=== PATIENT | female | born 1965 | race Caucasian/White ===

== ENCOUNTER 2017-07-13 01:05 | Inpatient (IN) | payer SELFPAY ==
[2017-07-13] MEDS ORDERED: PIPERACIL-TAZO 4.5 GM PREMIX 100 ML IV SCH (04:15)
[2017-07-13] MEDS ORDERED: SODIUM CHLORIDE 0.9% FLUSH 10 ML FLUSH IV FLUSH PRN (04:15)
[2017-07-13] MEDS ORDERED: NALOXONE HCL 0.4 MG/ML AMP IV PUSH PRN (04:15)
[2017-07-13] MEDS ORDERED: ACETAMINOPHEN 325 MG TAB PO PRN (04:15)
[2017-07-13] MEDS: SODIUM CHLOR 0.9% 1000 ML INJ 1,000 ML IV SCH ×2 (04:40→15:38)
[2017-07-13] MEDS: AZITHROMYCIN INJ 500 MG in SODIUM CHLOR 0.9% 250 ML INJ 250 ML IV SCH (04:41)
[2017-07-13] MEDS: cefTRIAXone INJ 1,000 MG in SODIUM CHLORIDE 0.9% INJ 100 ML IV SCH (06:34)
[2017-07-13 08:00] VITALS: BP 189/98; PULSE 95; RESP 22; TEMP 99.1; O2SAT 98
[2017-07-13] MEDS: INSULIN ASPART SUPPLEMENTAL SCALE SQ SCH ×4 (08:00→20:58)
[2017-07-13] MEDS ORDERED: GLUCAGON 1 MG/ML VIAL OTHER PRN (08:00)
[2017-07-13] MEDS ORDERED: DEXTROSE 50% IN WATER 50 ML VIAL(D50) IV PUSH PRN (08:00)
[2017-07-13] MEDS: SODIUM CHLORIDE 0.9% FLUSH 10 ML FLUSH IV FLUSH SCH ×2 (08:20→19:34)
--- NOTE | 2017-07-13 08:31 | HHI.HP ---
[facility] Non-Staff Admission Diagnosis Sepsis UTI Kidney stone Dehydration Diagnoses: (1) Sepsis (2) UTI (urinary tract infection) (3) Dehydration (4) Pneumonia Chief Complaint: Nausea, vomiting and diarrhea Travel History International Travel<30 Days: No Contact w/Intl Traveler <30 Da: No Traveled to Known Affected Are: No Sepsis Criteria SIRS Criteria (2 or more): Heart rate over 90, RR > 20 or PaCO2 < 32, WBC > 00844, < 4000 or > 10% bands Sepsis Criteria (SIRS+source): Infect source susp/known Criteria Outcome: Meets sepsis criteria History of Present Illness This is a 51-year-old female patient with a known medical history of hypertension and diabetes who presented to the ED with complaints of nausea, vomiting and one episode of diarrhea. Patient states that her symptoms have persisted for 2 days and she has been unable to keep anything down by mouth. She denies any recent fever, chills, headache, shortness of breath, cough. Does also complain of intermittent burning on urination as well as foul- smelling urine. Patient does follow with her primary care doctor, denies any recent changes to her medications. Did undergo a colonoscopy and EGD last year which was reportedly negative. Denies any black or bloody stools. Denies history of kidney stones. Review of Systems Constitutional: COMPLAINS OF: Fever, Chills Eyes: DENIES: Diplopia Respiratory: DENIES: Cough, Sputum production, Shortness of breath Cardiovascular: DENIES: Chest pain, Palpitations Gastrointestinal: COMPLAINS OF: Abdominal pain, Diarrhea, Nausea, Vomiting, DENIES: Black stools, Bloody stools, Constipation Musculoskeletal: DENIES: Joint pain Integumentary: DENIES: Abnormal pigmentation Neurologic: DENIES: Abnormal gait Psychiatric: COMPLAINS OF: Anxiety Except as stated in HPI: all other systems reviewed are Neg Past Family Social History Past Medical History Diabetes Hypertension Past Surgical History Episiotomy Reported Medications Lisinopril 5 mg p.o. daily Allergies: Coded Allergies: No Known Allergies (Unverified , 07/12/17) Active Ordered Medications Current Medications Medications (Trade) Dose Ordered Sig/Isaac Route Start Time Stop Time Status Last Admin Sodium Chloride 1,000 ml @ 100 mls/hr Q10H IV 07/13/17 04:05 07/13/17 04:40 (NS Flush) 2 ml UNSCH PRN IV FLUSH 07/13/17 04:15 (NS Flush) 2 ml BID IV FLUSH 07/13/17 09:00 (Narcan Inj) 0.4 mg UNSCH PRN IV PUSH 07/13/17 04:15 Azithromycin 500 mg/Sodium Chloride 250 ml @ 250 mls/hr Q24H IV 07/13/17 04:00 07/13/17 04:41 Ceftriaxone Sodium 1000 mg/ Sodium Chloride 100 ml @ 200 mls/hr Q24H IV 07/13/17 05:00 07/13/17 06:34 (Zofran Odt) 4 mg Q6H PRN SL 07/13/17 04:15 (Tylenol) 650 mg Q4H PRN PO 07/13/17 04:15 (D50w (Vial) Inj) 50 ml UNSCH PRN IV PUSH 07/13/17 08:00 (Glucagon Inj) 1 mg UNSCH PRN OTHER 07/13/17 08:00 (NovoLOG SUPPLEMENTAL SCALE) 1 ACHS SLIDING SCALE SQ 07/13/17 08:00 (Prinivil) 5 mg DAILY PO 07/13/17 11:45 UNV Family History Family medical history significant for diabetes and hypertension. Social History Patient denies any tobacco, alcohol or illicit drug use. Physical Exam Vital Signs Vital Signs Date Time Temp Pulse Resp B/P (MAP) Pulse Ox O2 Delivery O2 Flow Rate FiO2 07/13/17 08:00 99.1 95 22 189/98 (128) 98 Physical Exam GENERAL: Well-developed, well-nourished patient in NAD. SKIN: Warm and dry. No rash. HEAD: Normocephalic. Atraumatic. EYES: Pupils equal and round. No scleral icterus. No injection or drainage. ENT: No nasal bleeding or discharge. Mucous membranes pink and moist. NECK: Supple. Trachea midline. CARDIOVASCULAR: Regular rate and rhythm. S1, S2 noted. No murmur appreciated. RESPIRATORY: No accessory muscle use. Clear to auscultation. Breath sounds equal bilaterally. GASTROINTESTINAL: Abdomen soft, non-tender, nondistended. Normoactive bowel sounds x4. : No CVA tenderness. MUSCULOSKELETAL: No obvious deformities. Extremities without clubbing, cyanosis , or edema. NEUROLOGICAL: Awake and alert. No obvious cranial nerve deficits. Motor grossly within normal limits. 5/5 muscle strength in bilateral upper and lower extremities. Normal speech. PSYCHIATRIC: Appropriate mood and affect; insight and judgment normal. Septic Shock Reassessment Septic shock perfusion: reassessment completed Caprini VTE Risk Assessment Caprini VTE Risk Assessment: No/Low Risk (score <= 1) Caprini Risk Assessment Model Point Value = 1 Point Value = 2 Point Value = 3 Point Value = 5 Age 41-60 Minor surgery BMI > 25 kg/m2 Swollen legs Varicose veins or History of unexplained or recurrent spontaneous Oral contraceptives or hormone replacement Sepsis (< 1 month) Serious lung disease, including pneumonia (< 1 month) Abnormal pulmonary function Acute myocardial infarction Congestive heart failure (< 1 month) History of inflammatory bowel disease Medical patient at bed rest Age 61-74 Arthroscopic surgery Major open surgery (> 45 min) Laparoscopic surgery (> 45 min) Malignancy Confined to bed (> 72 hours) Immobilizing plaster cast Central venous access Age >= 75 History of VTE Family history of VTE Factor V Leiden Prothrombin [id number] Lupus anticoagulant Anticardiolipin antibodies Elevated serum homocysteine Heparin-induced thrombocytopenia Other congenital or acquired thrombophilia Stroke (< 1 month) Elective arthroplasty Hip, pelvis, or leg fracture Acute spinal cord injury (< 1 month) Prophylaxis Regimen Total Risk Factor Score Risk Level Prophylaxis Regimen 0-1 Low Early ambulation 2 Moderate Order ONE of the following: *Sequential Compression Device (SCD) *Heparin 5000 units SQ BID 3-4 Higher Order ONE of the following medications: *Heparin 5000 units SQ TID *Enoxaparin/Lovenox 40 mg SQ daily (WT < 150 kg, CrCl > 30 mL/min) *Enoxaparin/Lovenox 30 mg SQ daily (WT < 150 kg, CrCl > 10-29 mL/min) *Enoxaparin/Lovenox 30 mg SQ BID (WT < 150 kg, CrCl > 30 mL/min) AND/OR *Sequential Compression Device (SCD) 5 or more Highest Order ONE of the following medications: *Heparin 5000 units SQ TID (Preferred with Epidurals) *Enoxaparin/Lovenox 40 mg SQ daily (WT < 150 kg, CrCl > 30 mL/min) *Enoxaparin/Lovenox 30 mg SQ daily (WT < 150 kg, CrCl > 10-29 mL/min) *Enoxaparin/Lovenox 30 mg SQ BID (WT < 150 kg, CrCl > 30 mL/min) AND *Sequential Compression Device (SCD) Assessment and Plan Problem List: (1) Sepsis ICD Code: A41.9 - Sepsis, unspecified organism (2) UTI (urinary tract infection) ICD Code: N39.0 - Urinary tract infection, site not specified (3) Pneumonia ICD Code: J18.9 - Pneumonia, unspecified organism (4) Dehydration ICD Code: E86.0 - Dehydration Assessment and Plan This is a 51-year-old female patient with a known medical history of hypertension and diabetes who presented to the ED with complaints of nausea, vomiting and one episode of diarrhea. Sepsis Bilateral community-acquired pneumonia - With leukocytosis, tachycardia and tachypnea, source pneumonia/UTI. Awaiting lactic acid. - Imaging showing scattered mild interstitial infiltrates in both lower lungs. - Blood cultures pending, follow growth. - Continue on IV Azithromycin and Ceftriaxone. - Was given 2 L NS bolus in ED. Continue IVF. - Supplemental O2 as needed. Adequate O2 saturations and comfortable on RA. Left hydronephrosis suspect secondary to ureterolithiasis Abnormal UA with evidence of leukocyte esterase and white blood cells, rule out UTI, suspect secondary to above. Abdominal pain, nausea and vomiting suspect secondary to above. Improved. Acute kidney injury suspect secondary to above. - CT abdomen/pelvis reviewed showing moderate hydronephrosis of the left kidney with 3 mm stone. No acute findings. - Urine culture pending. Continue on antibiotics treatment of pneumonia and UTI. - Urology consulted, appreciate input and recommendations. Silva catheter ordered. - Creatinine 1.4 on presentation. Will continue IV fluids. Monitor BMP. - Hold home MAJOR. Avoid nephrotoxins. Type 2 diabetes mellitus, chronic: Accu-Chek before meals at bedtime, sliding scale, cover as needed. Monitor trends. Hypertension, chronic: BP significantly elevated on presentation. Will hold home lisinopril secondary to LUCAS. Amlodipine added. Monitor blood pressure trends. DVT prophylaxis: SCDs. Physician Certification 2 Midnight Certification Type: Admission for Inpatient Services Order for Inpatient Services The services are ordered in accordance with Medicare regulations or non- Medicare payer requirements, as applicable. In the case of services not specified as inpatient-only, they are appropriately provided as inpatient services in accordance with the 2-midnight benchmark. Estimated LOS (days): 3 3 days is the estimated time the patient will need to remain in the hospital, assuming treatment plan goals are met and no additional complications. Post-Hospital Plan: Home Candice Dejesus Jul 13, 2017 08:30
[2017-07-13] MEDS ORDERED: LISINOPRIL 5 MG TAB PO SCH (11:45)
[2017-07-13 12:00] VITALS: BP 220/109; PULSE 98; RESP 20; TEMP 97.9; O2SAT 98
[2017-07-13] MEDS ORDERED: LISI-519 PO (12:11)
[2017-07-13] MEDS: ONDANSETRON ODT 4 MG TAB SL PRN (12:25)
[2017-07-13] MEDS ORDERED: hydrALAZINE HCL 25 MG TAB PO PRN (12:30)
[2017-07-13] MEDS: amLODIPine BESYLATE 5 MG TAB PO SCH (13:03)
--- NOTE | 2017-07-13 15:56 | PD.CONS ---
HPI Service Urology Consult Requested By Candice ZAIDI Reason for Consult Left [place] and 3mm UVJ stone Primary Care Physician Non-Staff Diagnosis: (1) Sepsis ICD Code: A41.9 - Sepsis, unspecified organism (2) UTI (urinary tract infection) ICD Code: N39.0 - Urinary tract infection, site not specified (3) Pneumonia ICD Code: J18.9 - Pneumonia, unspecified organism (4) Dehydration ICD Code: E86.0 - Dehydration History of Present Illness 51y.o F came to ER overnight with c/o Left flank pain and N/V. no fever, no hematuria. Also states that has dysuria and bad urine odor. Her symptoms started 2 d/a. She denies any history in the past. Her Cr on admission was 1.4, She had mild leukocytosis. VS are stable. CT was done and c/w 3mm left UVJ with mod hydro. Her bladder was overdistended too. SHe had a soto placed by our earlier order. Her Culture is pending, she is on IV fluids and antbx Review of Systems Except as stated in HPI: all other systems reviewed are Neg Past Family Social History Past Medical History Diabetes Hypertension Past Surgical History Episiotomy Allergies: Coded Allergies: No Known Allergies (Unverified , 07/12/17) Family History Family medical history significant for diabetes and hypertension. Social History Patient denies any tobacco, alcohol or illicit drug use. Physical Exam Vital Signs Date Time Temp Pulse Resp B/P (MAP) Pulse Ox O2 Delivery O2 Flow Rate FiO2 07/13/17 12:00 97.9 98 20 220/109 (146) 98 07/13/17 08:00 99.1 95 22 189/98 (128) 98 Physical Exam GENERAL: This is a well-nourished, well-developed patient, in no apparent distress. HEAD: Atraumatic. Normocephalic. CARDIOVASCULAR: Regular rate and rhythm without murmurs, gallops, or rubs. RESPIRATORY: Clear to auscultation. Breath sounds equal bilaterally. No wheezes , rales, or rhonchi. GASTROINTESTINAL: Abdomen soft, non-tender, nondistended. GENITOURINARY: Bladder not distended. Soto is in place, urine is clear yellow MUSCULOSKELETAL: Extremities without clubbing, cyanosis, or edema. NEUROLOGICAL: Awake and alert. Lab results reviewed: Yes Laboratory Tests Test 07/13/17 13:31 Lactic Acid Level 0.9 Personally reviewed images: Yes Imaging Left 3mm UVJ with Moderate hydro Overdistended bladder Assessment and Plan Assessment and Plan 51y.o F with left UVJ obstructed stone, retention and UTI - Continue management as per primary team - Pain management prn, IV fluids and antbx - Start Flomax daily - Repeat Renal US prior to d/c - Keep soto in, voiding trial before d/c - No intervention for left stone needed, she most likely will be able to pass it on her own - Urology follow up in 2 - 3 weeks as outpt Discussed Condition With Dr Rocky ELIZABETH attending who agrees with this plan Rasheed Ochoa Jul 13, 2017 15:56
[2017-07-13 16:00] VITALS: BP 175/80; PULSE 88; RESP 18; TEMP 99.7; O2SAT 96
[2017-07-13] MEDS: TAMSULOSIN HCL 0.4 MG CAP PO SCH (17:11)
[2017-07-13 18:06] VITALS: BP 158/90
[2017-07-13 20:00] VITALS: BP 157/78; PULSE 91; RESP 20; TEMP 99.2; O2SAT 97
[2017-07-14] VITALS: BP 154/72; PULSE 76; RESP 20; TEMP 98.4; O2SAT 98
[2017-07-14] MEDS: SODIUM CHLOR 0.9% 1000 ML INJ 1,000 ML IV SCH ×3 (01:47→18:53)
[2017-07-14] MEDS: cefTRIAXone INJ 1,000 MG in SODIUM CHLORIDE 0.9% INJ 100 ML IV SCH (04:56)
[2017-07-14] MEDS: AZITHROMYCIN INJ 500 MG in SODIUM CHLOR 0.9% 250 ML INJ 250 ML IV SCH (04:57)
[2017-07-14 06:35] LABS: AUTOMATED NEUTROPHIL # 5.1 TH/MM3 (1.8-7.7); BASOPHIL % 0.3 % (0.0-2.0); EOSINOPHIL % 0.4 % (0.0-4.0); HEMATOCRIT 27.8 % (35.0-46.0); LYMPH % 26.2 % (9.0-44.0); MEAN CELL VOLUME 80.7 FL (80.0-100.0); MEAN CORPUSCULAR HEMOGLOBIN 26.2 PG (27.0-34.0); MEAN CORPUSCULAR HGB CONC 32.5 % (32.0-36.0); MONO % 7.8 % (0.0-8.0); MONOCYTE # 0.6 TH/MM3 (0-0.9); NEUT % 65.3 % (16.0-70.0); PLATELET COUNT 289 TH/MM3 (150-450); RED BLOOD COUNT 3.45 MIL/MM3 (4.00-5.30); WHITE BLOOD COUNT 7.7 TH/MM3 (4.0-11.0)
[2017-07-14 07:02] LABS: BICARBONATE 28.9 MEQ/L (21.0-32.0); CALCIUM 7.1 MG/DL (8.5-10.1); CREATININE 0.82 MG/DL (0.50-1.00)
[2017-07-14 07:20] LABS: CALCIUM-PROTEIN CORRECTED 7.9 MG/DL (8.5-10.1); TOTAL PROTEIN 5.6 GM/DL (6.4-8.2)
[2017-07-14 08:00] VITALS: BP 174/85; PULSE 89; RESP 20; TEMP 99; O2SAT 98
[2017-07-14] MEDS: INSULIN ASPART SUPPLEMENTAL SCALE SQ SCH ×4 (08:00→20:43)
[2017-07-14] MEDS: SODIUM CHLORIDE 0.9% FLUSH 10 ML FLUSH IV FLUSH SCH ×2 (08:37→20:41)
[2017-07-14] MEDS: amLODIPine BESYLATE 5 MG TAB PO SCH (08:41)
[2017-07-14] MEDS: TAMSULOSIN HCL 0.4 MG CAP PO SCH (08:41)
[2017-07-14] MEDS ORDERED: PROMETHAZINE INJ 25 MG/ML VIAL IM PRN (08:45)
--- NOTE | 2017-07-14 10:13 | HHI.PR ---
Subjective Remarks Patient is feeling poorly. Has been vomiting this morning. Experiencing midepigastric pain. No cough. Objective Vitals Vital Signs Date Time Temp Pulse Resp B/P (MAP) Pulse Ox O2 Delivery O2 Flow Rate FiO2 07/14/17 08:00 99.0 89 20 174/85 (114) 98 07/14/17 00:00 98.4 76 20 154/72 (99) 98 07/13/17 20:00 99.2 91 20 157/78 (104) 97 07/13/17 18:06 158/90 (112) 07/13/17 16:00 99.7 88 18 175/80 (111) 96 07/13/17 12:00 97.9 98 20 220/109 (146) 98 I/O 07/13/17 07/13/17 07/13/17 07/14/17 07/14/17 07/14/17 07:00 15:00 23:00 07:00 15:00 23:00 Intake Total 240 ml 1829 ml 1500 ml 120 ml Output Total 600 ml 1300 ml Balance 240 ml 1229 ml 200 ml 120 ml Intake Oral 240 ml 480 ml 1500 ml 120 ml IV Total 1349 ml Output Urine Total 600 ml 1300 ml # Bowel Movements 2 Result Diagram: 07/14/17 0512 07/14/17 0512 Objective Remarks GENERAL: This is a well-nourished, well-developed patient, in no apparent distress. CARDIOVASCULAR: Normal rate and regular rhythm without murmurs, gallops, or rubs. RESPIRATORY: Good respiratory efforts. Diminished breath sounds at the bases. Otherwise breath sounds equal and clear to auscultation bilaterally. GASTROINTESTINAL: Abdomen soft, mild tenderness in the midepigastric region. Nondistended. Normal and active bowel sounds. MUSCULOSKELETAL: Extremities without cyanosis, or edema. NEURO: Alert & Oriented x4 to person, place, time, situation. Moves all ext x4 PSYCH: Appropriate mood and affect. A/P Problem List: (1) Sepsis ICD Code: A41.9 - Sepsis, unspecified organism (2) UTI (urinary tract infection) ICD Code: N39.0 - Urinary tract infection, site not specified (3) Pneumonia ICD Code: J18.9 - Pneumonia, unspecified organism (4) Dehydration ICD Code: E86.0 - Dehydration Assessment and Plan 51-year-old female patient with a known medical history of hypertension and diabetes who presented to the ED with complaints of nausea, vomiting and one episode of diarrhea. Sepsis, probably secondary to UTI Bilateral community-acquired pneumonia - With leukocytosis, tachycardia and tachypnea, source UTI. - Imaging showing scattered mild interstitial infiltrates in both lower lungs. - Blood cultures pending, follow growth. - Continue on IV Azithromycin and Ceftriaxone. - Continue IVF. Left hydronephrosis suspect secondary to ureterolithiasis Abnormal UA with evidence of leukocyte esterase and white blood cells, rule out UTI, suspect secondary to above. Abdominal pain, nausea and vomiting suspect secondary to above. Improved. Acute kidney injury suspect secondary to above. - CT abdomen/pelvis reviewed showing moderate hydronephrosis of the left kidney with 3 mm stone. No acute findings. - Urine culture pending. Continue on antibiotics treatment of pneumonia and UTI. - Urology consulted, appreciate input and recommendations. Continue conservative management at this time. - Will continue IV fluids. Monitor BMP. - Hold home MAJOR. Avoid nephrotoxins. -Anti-emetics as needed. Type 2 diabetes mellitus, chronic: Accu-Chek before meals at bedtime, sliding scale, cover as needed. Monitor trends. Hypertension, chronic: BP significantly elevated on presentation. Resume lisinopril. Monitor blood pressure trends. DVT prophylaxis: SCDs. Robi Candelaria MD Jul 14, 2017 10:13
[2017-07-14] MEDS ORDERED: hydrALAZINE HCL 20 MG/ML VIAL IV PUSH PRN (10:15)
[2017-07-14] MEDS: LISINOPRIL 5 MG TAB PO SCH (11:00)
[2017-07-14] MEDS: POTASSIUM CHLOR 10 MEQ PREMIX 100 ML IV SCH ×3 (11:01→13:05)
[2017-07-14] MEDS: PANTOPRAZOLE SODIUM 40 MG VIAL IV PUSH SCH (11:01)
[2017-07-14 12:00] VITALS: BP 189/93; PULSE 88; RESP 19; TEMP 98; O2SAT 98
[2017-07-14] MEDS: ONDANSETRON ODT 4 MG TAB SL PRN (12:19)
[2017-07-14 12:21] VITALS: BP 159/85; PULSE 93; RESP 18; TEMP 98.5; O2SAT 98
[2017-07-14 16:00] VITALS: BP 165/82; PULSE 92; RESP 19; TEMP 100.2; O2SAT 94
[2017-07-14 20:00] VITALS: BP 162/79; PULSE 84; RESP 20; TEMP 98; O2SAT 95
[2017-07-15] VITALS: BP 139/71; PULSE 74; RESP 20; TEMP 97; O2SAT 97
[2017-07-15] MEDS: AZITHROMYCIN INJ 500 MG in SODIUM CHLOR 0.9% 250 ML INJ 250 ML IV SCH (04:12)
[2017-07-15] MEDS: SODIUM CHLOR 0.9% 1000 ML INJ 1,000 ML IV SCH (04:13)
[2017-07-15] MEDS: cefTRIAXone INJ 1,000 MG in SODIUM CHLORIDE 0.9% INJ 100 ML IV SCH (05:55)
[2017-07-15 06:43] LABS: HEMATOCRIT 27.6 % (35.0-46.0); HEMOGLOBIN 9.1 GM/DL (11.6-15.3); MEAN CELL VOLUME 83.5 FL (80.0-100.0); MEAN CORPUSCULAR HEMOGLOBIN 27.4 PG (27.0-34.0); MEAN CORPUSCULAR HGB CONC 32.8 % (32.0-36.0); MEAN PLATELET VOLUME 7.4 FL (7.0-11.0); PLATELET COUNT 266 TH/MM3 (150-450); RED BLOOD COUNT 3.31 MIL/MM3 (4.00-5.30); RED CELL DISTRIBUTION WIDTH 13.5 % (11.6-17.2); WHITE BLOOD COUNT 6.6 TH/MM3 (4.0-11.0)
[2017-07-15 07:12] LABS: BICARBONATE 26.8 MEQ/L (21.0-32.0); CALCIUM 7.1 MG/DL (8.5-10.1); CREATININE 0.75 MG/DL (0.50-1.00)
[2017-07-15 07:31] VITALS: BP 164/89; PULSE 82; RESP 20; TEMP 98.5; O2SAT 96
[2017-07-15 07:37] LABS: CALCIUM-PROTEIN CORRECTED 8.2 MG/DL (8.5-10.1)
[2017-07-15] MEDS: SODIUM CHLORIDE 0.9% FLUSH 10 ML FLUSH IV FLUSH SCH (09:00)
[2017-07-15] MEDS: TAMSULOSIN HCL 0.4 MG CAP PO SCH (09:06)
[2017-07-15] MEDS: LISINOPRIL 5 MG TAB PO SCH (09:06)
[2017-07-15] MEDS: INSULIN ASPART SUPPLEMENTAL SCALE SQ SCH ×3 (09:07→17:00)
[2017-07-15] MEDS ORDERED: TAMS5CAP PO (09:40)
--- NOTE | 2017-07-15 09:42 | HHI.DCPOC ---
Discharge Care Plan Diagnosis: (1) Infiltrate of lung present on imaging of chest (2) Nephrolithiasis (3) UTI (urinary tract infection) (4) Sepsis Goals to Promote Your Health * To prevent worsening of your condition and complications * To maintain your health at the optimal level Directions to Meet Your Goals Take your medications as prescribed Follow your dietary instruction Follow activity as directed Keep your appointments as scheduled Take your immunizations and boosters as scheduled If your symptoms worsen call your PCP, if no PCP go to Urgent Care Center or Emergency Room Smoking is Dangerous to Your Health. Avoid second hand smoke Call the 24-hour hour crisis hotline for domestic abuse at Robi Candelaria MD Jul 15, 2017 09:42
[2017-07-15] MEDS ORDERED: CEFU1TAB20 PO (09:44)
--- NOTE | 2017-07-15 09:47 | HHI.DS ---
Discharge Summary Admission Date Jul 13, 2017 at 03:44 Discharge Date: Jul 15, 2017 Admitting Diagnosis Sepsis UTI Kidney stone Dehydration (1) Sepsis ICD Code: A41.9 - Sepsis, unspecified organism (2) UTI (urinary tract infection) ICD Code: N39.0 - Urinary tract infection, site not specified (3) Pneumonia ICD Code: J18.9 - Pneumonia, unspecified organism (4) Dehydration ICD Code: E86.0 - Dehydration Procedures None Brief History - From Admission HPI from the admitting physician: This is a 51-year-old female patient with a known medical history of hypertension and diabetes who presented to the ED with complaints of nausea, vomiting and one episode of diarrhea. Patient states that her symptoms have persisted for 2 days and she has been unable to keep anything down by mouth. She denies any recent fever, chills, headache, shortness of breath, cough. Does also complain of intermittent burning on urination as well as foul- smelling urine. Patient does follow with her primary care doctor, denies any recent changes to her medications. Did undergo a colonoscopy and EGD last year which was reportedly negative. Denies any black or bloody stools. Denies history of kidney stones. CBC/BMP: 07/15/17 0615 07/15/17 0615 Significant Findings Laboratory Tests Test 07/13/17 13:31 07/14/17 05:12 07/15/17 06:15 Red Blood Count 3.45 MIL/MM3 (4.00-5.30) 3.31 MIL/MM3 (4.00-5.30) Hemoglobin 9.0 GM/DL (11.6-15.3) 9.1 GM/DL (11.6-15.3) Hematocrit 27.8 % (35.0-46.0) 27.6 % (35.0-46.0) Mean Corpuscular Hemoglobin 26.2 PG (27.0-34.0) Random Glucose 146 MG/DL (74-106) 113 MG/DL (74-106) Total Protein 5.6 GM/DL (6.4-8.2) 5.0 GM/DL (6.4-8.2) Calcium Level 7.1 MG/DL (8.5-10.1) 7.1 MG/DL (8.5-10.1) Potassium Level 3.3 MEQ/L (3.5-5.1) 3.4 MEQ/L (3.5-5.1) Estimat Glomerular Filtration Rate 73 ML/MIN (>89) 81 ML/MIN (>89) Protein Corrected Calcium 7.9 MG/DL (8.5-10.1) 8.2 MG/DL (8.5-10.1) Chloride Level 109 MEQ/L (98-107) PE at Discharge GENERAL: This is a well-nourished, well-developed patient, in no apparent distress. CARDIOVASCULAR: Normal rate and regular rhythm without murmurs, gallops, or rubs. RESPIRATORY: Good respiratory efforts. Diminished breath sounds at the bases. Otherwise breath sounds equal and clear to auscultation bilaterally. GASTROINTESTINAL: Abdomen soft, mild tenderness in the midepigastric region. Nondistended. Normal and active bowel sounds. MUSCULOSKELETAL: Extremities without cyanosis, or edema. NEURO: Alert & Oriented x4 to person, place, time, situation. Moves all ext x4 PSYCH: Appropriate mood and affect. Pt update on day of discharge Patient reports she is feeling much better. She tolerated breakfast. No abdominal pain. Hospital Course 51-year-old female patient with a known medical history of hypertension and diabetes who presented to the ED with complaints of nausea, vomiting and one episode of diarrhea. Patient found to have sepsis secondary to UTI. She also had some infiltrates on chest x-ray but did not have significant pneumonia symptoms. Patient was found to have a small left kidney stone as well. Treatment course detailed below: Sepsis, probably secondary to UTI Bilateral community-acquired pneumonia - With leukocytosis, tachycardia and tachypnea, source UTI. - Imaging showing scattered mild interstitial infiltrates in both lower lungs. -Patient treated with IV antibiotics. Sepsis resolved. Urine grew E. coli. Left hydronephrosis suspect secondary to ureterolithiasis Acute kidney injury suspect secondary to above. - CT abdomen/pelvis reviewed showing moderate hydronephrosis of the left kidney with 3 mm stone. -Patient treated with antibiotics for UTI and possible pneumonia. - Urology consulted, appreciate input and recommendations. Continue conservative management at this time. -Voiding trial prior to discharge. Type 2 diabetes mellitus, chronic: Accu-Chek before meals at bedtime, sliding scale, cover as needed. Hypertension, chronic: Resume home dose medications on discharge. Pt Condition on Discharge: Good Discharge Disposition: Discharge Home Discharge Time: <= 30 minutes Discharge Instructions DIET: Follow Instructions for: Heart Healthy Diet Activities you can perform: Regular-No Restrictions Follow up Referrals: PCP Follow-up - 1 Week New Medications: Cefuroxime (Cefuroxime) 500 Mg Tab 500 MG PO BID for Infection, #10 TAB 0 Refills Tamsulosin (Flomax) 0.4 Mg Cap 0.4 MG PO DAILY, #14 CAP Continued Medications: Lisinopril (Lisinopril) 5 Mg Tab 5 MG PO DAILY for Blood Pressure Management, #30 TAB 0 Refills Robi Candelaria MD Jul 15, 2017 09:47
[2017-07-15 11:15] VITALS: BP 140/76; PULSE 74; RESP 20; TEMP 98.1; O2SAT 97
[2017-07-15] MEDS: PANTOPRAZOLE SODIUM 40 MG VIAL IV PUSH SCH (11:32)
[2017-07-15 15:43] VITALS: BP 144/74; PULSE 78; RESP 20; TEMP 98; O2SAT 96
== END 2017-07-15 18:04 | disposition home or self-care (01) | DRG 871 ==
LOC: PHEDDLT 03:20 → PH3A 03:44
PROVIDERS: ADMIT Family Medicine; ATTEND Family Medicine
DX: A41.51 Sepsis due to Escherichia coli [E. coli] (principal); J18.9 Pneumonia, unspecified organism; N17.9 Acute kidney failure, unspecified; N39.0 Urinary tract infection, site not specified; N13.2 Hydronephrosis with renal and ureteral calculous obstruction; E86.0 Dehydration; I10 Essential (primary) hypertension; E11.9 Type 2 diabetes mellitus without complications; R19.7 Diarrhea, unspecified
CPT/HCPCS: 76937; 80048; 82948; 83605; 84155; 85025; 85027; C9113; J0360; J0456; J0696; J1815; J2550; J3480; J7030; J7050